=== PATIENT | female | born 1995 | race Caucasian/White ===

== ENCOUNTER 2023-05-22 18:18 | Emergency (ER) | payer BC, SELFPAY ==
[2023-05-22 18:34] VITALS: BP 137/82; PULSE 78; RESP 16; TEMP 37; O2SAT 99; BMI 19.4
--- NOTE | 2023-05-22 19:15 | ED_ITS ---
HPI - General Adult General Chief complaint: Neck Pain/Injury Stated complaint: neck pain Time Seen by Provider: 05/22/23 18:54 Source: patient and family (mother) Mode of arrival: ambulatory Limitations: no limitations History of Present Illness HPI narrative: 28 year old female with no significant pmhx presents to the ED with a complaint of atraumatic left sided neck pain, progressively worsening x4 days. Admits to waking up with neck pain 4 days ago. Pain is exacerbated with turning her head to the left. Pain has been controlled with ibuprofen over the last few days however upon placing a dish into a cabinet earlier today, she felt her neck kink. Pain has been constant since then. Localized to left neck with some radiation up into her head. Reports taking ibuprofen [employer] without relief of pain. Denies numbness/tingling/weakness down the UEs. Denies headache, vision changes, N/V, back pain. No trauma/injury/fall. Related Data Previous Rx's Medication Instructions Recorded ketorolac 10 mg tablet 10 mg PO Q8H 5 days #15 tabs 05/22/23 lidocaine 5 % topical patch 1 patch topical DAILY #15 ea 05/22/23 (Lidoderm) naproxen 500 mg tablet 500 mg PO Q8-12H PRN pain (scale 05/22/23 score 4-6) #20 tabs Allergies Allergy/AdvReac Type Severity Reaction Status Date / Time No Known Allergies Allergy Verified 05/22/23 18:33 Review of Systems Review of Systems: Constitutional: No fever, chills, fatigue, night sweats, weight changes ENT/Mouth: No ear pain, hearing loss, nasal congestion, sinus pain, rhinorrhea, sore throat Eyes: No eye pain, swelling, redness, vision changes, discharge Cardio: No chest pain, palpitations, MAKI, orthopnea, peripheral edema Pulm: No SOB, cough, sputum, wheezing, dyspnea, hemoptysis GI: No nausea, vomiting, hematemesis, abdominal pain, diarrhea, constipation, hematochezia, melena : No irregular bleeding, dysuria, frequency, urgency, hesitancy, hematuria, flank pain, urinary flow changes, urinary incontinence or retention MSK: No back pain, +neck pain, No joint pain, myalgias Skin: No lesions, rashes Neuro: No weakness, numbness, paresthesias, LOC, dizziness, headache All other systems reviewed and are negative. [facility] Past Medical History Attestation statement: The following information was validated with the patient. Source: old records reviewed and nursing notes reviewed Social History Alcohol intake: never Smoked in Last 30 Days: No Use of substances other than those prescribed or required for medical reasons: No Advance Directives: No Advance Directives Information Provided: No Patient : No Physical Exam ED Vital Signs: Vital Signs - 24 hr 05/22/23 18:34 05/22/23 20:41 Temperature 98.6 F 98.1 F Pulse Rate 78 73 Respiratory Rate 16 18 Blood Pressure 137/82 117/84 Pulse Oximetry 99 99 Oxygen Delivery Method Room Air Room Air BMI result Body Mass Index 19.4 Vital signs stable Const General: cooperative, healthy appearing, comfortable, no acute distress, alert and awake Orientation/consciousness: patient oriented x3 Limitations: no limitations HENMT Head: Yes normal to inspection, Yes normocephalic and Yes atraumatic Eyes General: appearance normal, both eyes and all related structures Conjunctivae: conjunctivae normal Sclerae: sclerae normal Pupils: Equal, round and reactive pupils present Neck Other: + Limited range of motion of the C-spine to left secondary to pain. +Left cervical paraspinal mm tenderness. No cervical midline spinous tenderness or step off deformity. Neck: Yes normal visual inspection and Yes no lymphadenopathy Resp Effort & Inspection: normal respiratory effort and able to speak in complete sentences Auscultation: clear to auscultation bilaterally Cardio Rate: regular rate Rhythm: regular rhythm Peripheral pulses: radial pulses present Back/Spine/Pelvis Other: No midline spinous tenderness. No step-off deformity. Skin General skin exam: no rashes or lesions noted Neuro Other: Strength 5/5 intact throughout. No saddle anesthesia.?Sensation intact to light touch. Neurovascular intact distally.? General: patient oriented x3, gait normal and moves all extremities Cranial nerves: Yes Equal, round and reactive pupils present Extrem General: Yes normal to inspection, Yes full ROM and Yes capillary refill normal Course Course Course Narrative: 2147-- On re-evaluation, patient's neck pain has improved with valium, tylenol, and lido patch. She now has increased range of motion to her C-spine. Endorses mild pain. Ambulating with steady gait. Symptoms are consistent with an MSK sprain/ strain. I do not suspect fracture she has no midline spinous tenderness and there has been no acute injury or trauma to the neck. I will send Flexeril, naproxen, Lidoderm patches to her pharmacy. Discussed strict return precautions. All questions answered at this time. Patient is agreeable disposition and stable for discharge. Medications Administered Discontinued Medications Generic Name Dose Route Start Last Admin Trade Name Dwight PRN Reason Stop Dose Admin Acetaminophen 975 mg 05/22/23 20:42 05/22/23 20:52 Acetaminophen 325 Mg Tablet PO 05/22/23 20:43 975 mg ONCE ONE Administration Diazepam 5 mg 05/22/23 19:14 05/22/23 19:41 Diazepam 2 Mg Tablet PO 05/22/23 19:15 5 mg ONCE ONE Administration Lidocaine 1 patch 05/22/23 19:14 05/22/23 19:41 Lidocaine 4 % Patch Adh..Patch TRANSDERMA 05/22/23 19:15 1 patch ONCE ONE Administration Protocol Medical Decision Making Medical Decision Making MDM Narrative: 28 year old female with no significant pmhx presents to the ED with a complaint of atraumatic left sided neck pain, progressively worsening x4 days. VSS. Nontoxic appearing, in NAD. On exam there is limited ROM of the C-spine to left secondary to pain. There is left cervical paraspinal muscle tenderness. No cervical midline spinous tenderness or step off deformity. Strength 5/5 throughout. Clinical concern for msk sprain/ strain vs torticolis vs cervical radiculopathy. Unlikely fracture, subluxation, disc herniation. Plan for pain control and re-evaluation. Differential Diagnosis Differential Diagnoses: The differential diagnosis associated with the presentation includes As above. Admission/Observation Not indicated. Independent Historian Clinical information obtained from an independent historian. History obtained from or confirmed by: Parent External Record Review External record reviewed: Inpatient record Prescription Management I considered prescription management with: Pain Medication Critical Care Time Critical Care Time Critical Care Time: No Discharge Plan Discharge Clinical Impression: Strain of neck muscle Patient Disposition: Home, Self-Care Instructions: Cervical Strain (DC) Additional Instructions: You likely have a pulled muscle in your neck. Please avoid bending, lifting, or twisting as this can exacerbate your symptoms. Use ice several times per day for 20 minutes at a time for the next 48 hours and then change to heat. Flexeril is a muscle relaxer. Take this at night as it makes you drowsy. Do not drive, drink alcohol, or operate machinery while taking it. Naproxen is an anti-inflammatory / pain medication. Take with food. Do not take this with Ibuprofen. Lidoderm patches are numbing patches. Apply to painful areas. In addition you may take Tylenol at home. Follow up with your primary care provider as needed If your pain worsens, if you develop new numbness, tingling, weakness, loss of bowel or bladder function call 911 or return to the ER immediately for evaluation. Prescriptions: New ketorolac 10 mg tablet 10 mg PO Q8H 5 Days Qty: 15 0RF lidocaine [Lidoderm] 5 % adhesive patch,medicated 1 patch topical DAILY Qty: 15 0RF Rx Instructions: leave on most painful area for up to 12 hrs naproxen 500 mg tablet 500 mg PO Q8-12H PRN (Reason: pain (scale score 4-6)) Qty: 20 0RF Referrals: [facility] [place] [facility]] Stand Alone Forms: Work/School Release Interventions: ED Discharge Assessment Last Done: 05/22/23 22:02 Discharge Date/Time: 05/22/23 22:04
[2023-05-22] MEDS: Lidocaine 4 % Patch ADH..PATCH 1 PATCH TRANSDERMA (19:41)
[2023-05-22] MEDS: diazePAM 2 MG TABLET 5 MG PO (19:41)
[2023-05-22 20:41] VITALS: BP 117/84; PULSE 73; RESP 18; TEMP 36.7; O2SAT 99
[2023-05-22] MEDS: Acetaminophen 325 MG TABLET 975 MG PO (20:52)
== END 2023-05-22 22:04 | disposition home or self-care (01) ==
PROVIDERS: Emergency Provider Emergency Medicine Emergency Medical Services; PCP Internal Medicine
DX: S16.1XXA Strain of muscle, fascia and tendon at neck level, initial encounter (principal); X50.1XXA Overexertion from prolonged static or awkward postures, initial encounter; Y93.84 Activity, sleeping; Y92.013 Bedroom of single-family (private) house as the place of occurrence of the external cause; Y99.9 Unspecified external cause status
CPT/HCPCS: 99283; 99284